=== PATIENT | female | born 1950 | race Caucasian/White ===

== ENCOUNTER → 2017-09-06 | Outpatient (CLI) | payer MEDICARE ==
[~2017-09-06] MED LIST: AMOCLA875 PO; ASPI325; BISA5EC PO; CELE200 PO; CEPH500 PO; CETI10 PO; CRUTCH USE; Cyclobenzaprine5 MG PO; DIPH50 PO; ENOX80I SQ; EPIN.3I IM; ESTMET; FAMO20 PO; FENTANYL PAIN PUMP; FOLI1 PO; GABA300 PO; GLUCHON; HYDACE5 PO; HYDACE7.5; HYDSUL200; HYDSUL200 PO; LEVSOD50 PO; LIDO700A20 TOP; LORA1; LORA2 PO; LOSA50 PO; METCAR500 PO; METO25 PO; METO25ER; METO50ER; METPRE4DP PO; METTREX2.5 PO; MORP15ER; MORPHINE 10 MG; MULVITA PO; OXYACE5T PO; OXYC30; OXYC5 PO; PHAZYME250 MG; POLY17UD PO; PRED20 PO; Percocet 5-3251 EACH PO; RANI150 PO; ROFE25; RXHYDACE PO; RXONDA4ODT MM; SULI200 PO; TIZA4 PO; WARF2.5 PO; Zanaflex4 M1 PO; [UNRECOGNIZED DRUG - OTHER]; [UNRECOGNIZED DRUG - REMARK]
== END ==
LOC: LAB 12:22
DX: N39.0 Urinary tract infection, site not specified (principal)
CPT/HCPCS: 87077; 87086; 87186

== ENCOUNTER → 2017-12-17 | Outpatient (CLI) | payer MEDICARE ==
[~2017-12-17] MED LIST changes: -LIDO700A20 TOP
== END | disposition home or self-care (01) ==
LOC: LAB 15:59 → LAB SHORT 15:59
DX: N39.0 Urinary tract infection, site not specified (principal)
CPT/HCPCS: 87077; 87086; 87186

== ENCOUNTER → 2018-02-20 | Outpatient (CLI) | payer MEDICARE ==
[2018-02-20 18:26] LABS: Free Thyroxine 1.15 ng/dL (0.70-1.60); Thyroid Stimulating Hormone 3.52 uIU/mL (0.360-4.800)
== END ==
LOC: LAB 17:29 → LAB SHORT 17:29
PROVIDERS: Hospitalist
DX: E03.9 Hypothyroidism, unspecified (principal)
CPT/HCPCS: 84439; 84443

== ENCOUNTER → 2018-06-20 | Outpatient (CLI) | payer MEDICARE ==
[~2018-06-20] MED LIST changes: +LIDO700A20 TOP
== END | disposition home or self-care (01) ==
LOC: LAB 10:28 → LAB SHORT 10:28
DX: N39.0 Urinary tract infection, site not specified (principal)
CPT/HCPCS: 87077; 87086; 87186

== ENCOUNTER → 2019-08-20 | Outpatient (CLI) | payer MEDICARE ==
[2019-08-20 19:54] LABS: Bun/Creatinine Ratio 23.8 (12.0-20.0); Calcium, Blood 9.3 mg/dL (8.5-10.1); Creatinine, Blood 1.26 mg/dL (0.40-1.00); Potassium, Blood 4.7 mmol/L (3.5-5.5)
== END | disposition home or self-care (01) ==
LOC: LAB 18:14 → LAB SHORT 18:14
PROVIDERS: Hospitalist
DX: N17.9 Acute kidney failure, unspecified (principal)
CPT/HCPCS: 80048

== ENCOUNTER 2020-10-01 12:57 | Emergency (ER) | payer MEDICARE ==
[~2020-10-01] VITALS: Ht 162.6 cm; Wt 65.8 kg
[2020-10-01 13:43] LABS: BASOPHILS ABSOLUTE AUTO 0.03 K/mm3 (0.00-0.23); BASOPHILS PERCENT AUTO 1 % (0-2); EOSINOPHILS ABSOLUTE AUTO 0.15 K/mm3 (0.00-0.68); EOSINOPHILS PERCENT AUTO 4 % (0-6); Hematocrit 36.2 % (33.0-51.0); Hemoglobin 12.1 g/dL (11.5-16.0); IMMATURE GRAN ABSOLUTE AUTO 0.01 K/mm3 (0.00-0.10); IMMATURE GRAN PERCENT AUTO 0 % (0-1); LYMPHOCYTES PERCENT AUTO 26 % (21-46); MONOCYTES ABSOLUTE AUTO 0.43 K/mm3 (0.16-1.47); MONOCYTES PERCENT AUTO 10 % (4-13); Mean Corpuscular HGB 32.7 pg (26.0-34.0); Mean Corpuscular HGB Conc 33.4 g/dL (31.5-36.5); Mean Corpuscular Volume 98 fL (80-100); Mean Platelet Volume 12.7 fL (9.1-12.4); NEUTROPHILS ABSOLUTE AUTO 2.53 K/mm3 (1.96-9.15); NEUTROPHILS PERCENT AUTO 60 % (41-73); Platelet Count 164 K/mm3 (150-400); RDW Coefficient Variation 11.6 % (11.7-14.2); RDW Standard Deviation 41.7 fL (35.1-46.3); White Blood Cell Count 4.25 K/mm3 (4.00-11.30)
[2020-10-01 14:03] LABS: Alanine Aminotransfer (ALT/SGP 30 U/L (12-78); Albumin, Blood 3.6 g/dL (3.4-5.0); Alk Phos 94 U/L (50-136); Anion Gap 4 mmol/L (6-16); Aspartate Aminotrans (AST/SGOT 36 U/L (12-37); Bilirubin, Total 0.4 mg/dL (0.1-1.0); Blood Urea Nitrogen 30 mg/dL (8-24); Bun/Creatinine Ratio 27.5 (12.0-20.0); CO2, Blood 28 mmol/L (21-32); Calcium, Blood 9.3 mg/dL (8.5-10.1); Chloride, Blood 109 mmol/L (98-108); Creatinine, Blood 1.09 mg/dL (0.40-1.00); Globulin, Blood 3.6 g/dL (2.2-4.0); Glomerular Filtration Rate 52 (60-); Glucose, Blood 110 mg/dL (70-99); Potassium, Blood 5.4 mmol/L (3.5-5.5); Sodium, Blood 141 mmol/L (136-145); Total Protein, Blood 7.2 g/dL (6.4-8.2); Troponin I <0.015 ng/mL (0.000-0.040)
[2020-10-01] MEDS ORDERED: XARELTO20 MG PO (17:31)
== END 2020-10-01 18:21 | disposition home or self-care (01) ==
LOC: ER 12:57
PROVIDERS: Physician Assistant
DX: I26.99 Other pulmonary embolism without acute cor pulmonale (principal); Z79.899 Other long term (current) drug therapy; Z91.030 Bee allergy status
CPT/HCPCS: 36415; 71046; 71260; 80053; 83880; 84484; 85025; 93005; 93010; 99285-25; Q9967

== ENCOUNTER 2020-11-18 13:10 | Emergency (ER) | payer MEDICARE ==
[~2020-11-18] VITALS: Ht 160 cm; Wt 63.5 kg
[~2020-11-18 13:10] MED LIST changes: +DELTASONE20 MG PO; +XARELTO20 MG PO
== END 2020-11-18 16:15 | disposition home or self-care (01) ==
LOC: ER 13:10
DX: M71.21 Synovial cyst of popliteal space [Baker], right knee (principal); I10 Essential (primary) hypertension; E03.9 Hypothyroidism, unspecified; Z79.899 Other long term (current) drug therapy; Z91.030 Bee allergy status
CPT/HCPCS: 93971; 99283-25

== ENCOUNTER → 2020-12-22 | Outpatient (CLI) | payer MEDICARE ==
[2020-12-22 20:07] LABS: Free Thyroxine 1.3 ng/dL (0.70-1.60); Thyroid Stimulating Hormone 2.92 uIU/mL (0.360-4.800)
== END | disposition home or self-care (01) ==
LOC: LAB 17:30 → LAB SHORT 17:30
PROVIDERS: Hospitalist
DX: E03.9 Hypothyroidism, unspecified (principal)
CPT/HCPCS: 84439; 84443

== ENCOUNTER → 2021-04-12 | Outpatient (CLI) | payer MEDICARE | LOC: LAB SHORT 14:22 | DX: R30.0 Dysuria (principal); Z91.038 Other insect allergy status | CPT/HCPCS: 87086 ==

== ENCOUNTER 2021-07-20 15:49 | Emergency (ER) | payer MEDICARE ==
[~2021-07-20] VITALS: Ht 160 cm; Wt 63.5 kg
== END 2021-07-20 18:37 | disposition home or self-care (01) ==
LOC: ER 15:49
DX: U07.1 COVID-19 (principal); Z23 Encounter for immunization; Z91.030 Bee allergy status; Z79.899 Other long term (current) drug therapy; Z79.891 Long term (current) use of opiate analgesic; Z79.52 Long term (current) use of systemic steroids; M06.9 Rheumatoid arthritis, unspecified; E03.9 Hypothyroidism, unspecified; I10 Essential (primary) hypertension
CPT/HCPCS: 99283-25; M0247

== ENCOUNTER → 2021-07-20 | Outpatient (CLI) | payer MEDICARE ==
[2021-07-20 16:06] LABS: BASOPHILS ABSOLUTE AUTO 0.02 K/mm3 (0.00-0.23); BASOPHILS PERCENT AUTO 0 % (0-2); EOSINOPHILS ABSOLUTE AUTO 0.07 K/mm3 (0.00-0.68); EOSINOPHILS PERCENT AUTO 1 % (0-6); Hematocrit 36.8 % (33.0-51.0); Hemoglobin 12.2 g/dL (11.5-16.0); IMMATURE GRAN ABSOLUTE AUTO 0.01 K/mm3 (0.00-0.10); IMMATURE GRAN PERCENT AUTO 0 % (0-1); LYMPHOCYTES ABSOLUTE AUTO 0.41 K/mm3 (0.84-5.20); LYMPHOCYTES PERCENT AUTO 8 % (21-46); MONOCYTES ABSOLUTE AUTO 0.59 K/mm3 (0.16-1.47); MONOCYTES PERCENT AUTO 12 % (4-13); Mean Corpuscular HGB 32.4 pg (26.0-34.0); Mean Corpuscular HGB Conc 33.2 g/dL (31.5-36.5); Mean Corpuscular Volume 98 fL (80-100); Mean Platelet Volume 12.9 fL (9.1-12.4); NEUTROPHILS PERCENT AUTO 78 % (41-73); Platelet Count 122 K/mm3 (150-400); RDW Coefficient Variation 12.2 % (11.7-14.2); RDW Standard Deviation 44.1 fL (35.1-46.3); Red Blood Cell Count 3.76 M/mm3 (3.80-5.20)
== END ==
LOC: LAB SHORT 15:23
PROVIDERS: Physician Assistant
DX: R53.83 Other fatigue (principal); R07.9 Chest pain, unspecified
CPT/HCPCS: 85025; 85379

== ENCOUNTER 2021-08-28 19:36 | Emergency (ER) | payer MEDICARE ==
[~2021-08-28] VITALS: Ht 160 cm; Wt 64.9 kg
[2021-08-28 20:08] LABS: BASOPHILS ABSOLUTE AUTO 0.03 K/mm3 (0.00-0.23); BASOPHILS PERCENT AUTO 1 % (0-2); EOSINOPHILS ABSOLUTE AUTO 0.16 K/mm3 (0.00-0.68); EOSINOPHILS PERCENT AUTO 3 % (0-6); Hematocrit 35.1 % (33.0-51.0); Hemoglobin 11.3 g/dL (11.5-16.0); IMMATURE GRAN ABSOLUTE AUTO 0.01 K/mm3 (0.00-0.10); IMMATURE GRAN PERCENT AUTO 0 % (0-1); LYMPHOCYTES ABSOLUTE AUTO 1.74 K/mm3 (0.84-5.20); LYMPHOCYTES PERCENT AUTO 32 % (21-46); MONOCYTES ABSOLUTE AUTO 0.71 K/mm3 (0.16-1.47); MONOCYTES PERCENT AUTO 13 % (4-13); Mean Corpuscular HGB 32.8 pg (26.0-34.0); Mean Corpuscular HGB Conc 32.2 g/dL (31.5-36.5); Mean Corpuscular Volume 102 fL (80-100); Mean Platelet Volume 12.1 fL (9.1-12.4); NEUTROPHILS ABSOLUTE AUTO 2.77 K/mm3 (1.96-9.15); NEUTROPHILS PERCENT AUTO 51 % (41-73); Platelet Count 156 K/mm3 (150-400); RDW Coefficient Variation 12.3 % (11.7-14.2); RDW Standard Deviation 46.5 fL (35.1-46.3); Red Blood Cell Count 3.45 M/mm3 (3.80-5.20); White Blood Cell Count 5.42 K/mm3 (4.00-11.30)
[2021-08-28 20:21] LABS: Albumin, Blood 3.4 g/dL (3.4-5.0); Albumin/Globulin Ratio 1.1 (0.8-1.8); Bilirubin, Total 0.2 mg/dL (0.1-1.0); Bun/Creatinine Ratio 19.7 (12.0-20.0); Calcium, Blood 9.5 mg/dL (8.5-10.1); Creatinine, Blood 1.57 mg/dL (0.40-1.00); Globulin, Blood 3.2 g/dL (2.2-4.0); Potassium, Blood 3.6 mmol/L (3.5-5.5); Total Protein, Blood 6.6 g/dL (6.4-8.2)
== END 2021-08-29 00:22 | disposition home or self-care (01) ==
LOC: ER 19:36
PROVIDERS: Emergency Medicine
DX: I95.9 Hypotension, unspecified (principal); R55 Syncope and collapse; E86.0 Dehydration; I12.9 Hypertensive chronic kidney disease with stage 1 through stage 4 chronic kidney disease, or unspecified chronic kidney disease; N18.9 Chronic kidney disease, unspecified; E03.9 Hypothyroidism, unspecified; Z86.718 Personal history of other venous thrombosis and embolism; Z91.030 Bee allergy status; Z79.899 Other long term (current) drug therapy
CPT/HCPCS: 80053; 83880; 84484; 85025; 85379; 93005; 93010; 99284-25; J7030

== ENCOUNTER → 2021-10-31 | Outpatient (CLI) | payer MEDICARE ==
[2021-10-31 15:25] LABS: Free Thyroxine 1.25 ng/dL (0.70-1.60)
[2021-10-31 15:31] LABS: Thyroid Stimulating Hormone 1.13 uIU/mL (0.360-4.800); Triiodothyronine, Free 2.69 pg/mL (2.18-3.98)
== END | disposition home or self-care (01) ==
LOC: LAB 11:45 → LAB SHORT 11:45
PROVIDERS: Hospitalist
DX: E03.9 Hypothyroidism, unspecified (principal)
CPT/HCPCS: 84439; 84443; 84481

== ENCOUNTER 2022-03-31 20:33 | Emergency (ER) | payer MEDICARE ==
[~2022-03-31] VITALS: Ht 160 cm; Wt 63.5 kg
[2022-03-31 21:12] LABS: BASOPHILS ABSOLUTE AUTO 0.04 K/mm3 (0.00-0.23); BASOPHILS PERCENT AUTO 1 % (0-2); EOSINOPHILS ABSOLUTE AUTO 0.15 K/mm3 (0.00-0.68); EOSINOPHILS PERCENT AUTO 3 % (0-6); Hematocrit 34.4 % (33.0-51.0); Hemoglobin 11.6 g/dL (11.5-16.0); IMMATURE GRAN PERCENT AUTO 0 % (0-1); LYMPHOCYTES ABSOLUTE AUTO 2.21 K/mm3 (0.84-5.20); LYMPHOCYTES PERCENT AUTO 41 % (21-46); MONOCYTES ABSOLUTE AUTO 0.57 K/mm3 (0.16-1.47); MONOCYTES PERCENT AUTO 11 % (4-13); Mean Corpuscular HGB Conc 33.7 g/dL (31.5-36.5); Mean Corpuscular Volume 98 fL (80-100); Mean Platelet Volume 12.3 fL (9.1-12.4); NEUTROPHILS ABSOLUTE AUTO 2.44 K/mm3 (1.96-9.15); NEUTROPHILS PERCENT AUTO 45 % (41-73); Platelet Count 179 K/mm3 (150-400); RDW Coefficient Variation 12.4 % (11.7-14.2); RDW Standard Deviation 44.2 fL (35.1-46.3); Red Blood Cell Count 3.52 M/mm3 (3.80-5.20); White Blood Cell Count 5.41 K/mm3 (4.00-11.30)
[2022-03-31 21:30] LABS: Albumin, Blood 3.4 g/dL (3.4-5.0); Albumin/Globulin Ratio 1.1 (0.8-1.8); Bilirubin, Total 0.2 mg/dL (0.1-1.0); Bun/Creatinine Ratio 20.6 (12.0-20.0); Calcium, Blood 9.5 mg/dL (8.5-10.1); Creatinine, Blood 1.41 mg/dL (0.40-1.00); Globulin, Blood 3.2 g/dL (2.2-4.0); Phosphorus, Blood 2.1 mg/dL (2.5-4.9); Potassium, Blood 3.8 mmol/L (3.5-5.5); Total Protein, Blood 6.6 g/dL (6.4-8.2)
[2022-03-31 23:11] LABS: Source, Urine Clean Catch
[2022-03-31 23:13] LABS: Bilirubin, Urine Neg (Neg); Blood, Urine Neg (Neg); Glucose Qualitative, Urine Neg (Neg); Ketones, Urine 1+ (Neg); Leukocyte Esterase, Urine 1+ (Neg); Nitrite, Urine Neg (Neg); Protein, Urine Neg (Neg); Specific Gravity, Urine 1.015 (1.003-1.022); Urobilinogen, Urine NORM (Normal)
[2022-03-31 23:30] LABS: Appearance, Urine Clear (Clear); Color, Urine Yellow (P-Yellow)
[2022-03-31 23:33] LABS: Bacteria Not Seen /hpf; Red Blood Cells, Urine Not Seen /hpf (0-2); Squamous Epithelial Cells Not Seen /hpf (Few); White Blood Cells, Urine 0-2 /hpf (0-5)
== END 2022-04-01 00:26 | disposition home or self-care (01) ==
LOC: ER 20:33
PROVIDERS: Physician Assistant
DX: R55 Syncope and collapse (principal); I95.9 Hypotension, unspecified; E03.9 Hypothyroidism, unspecified; I10 Essential (primary) hypertension; Z87.891 Personal history of nicotine dependence; Z91.030 Bee allergy status; Z79.899 Other long term (current) drug therapy
CPT/HCPCS: 36415; 71045; 80053; 81001; 83735; 84100; 84484; 85025; 93005; 93010; 96360; 96361; 99284-25; J7030

== ENCOUNTER → 2022-04-12 | Outpatient (CLI) | payer MEDICARE | END | disposition home or self-care (01) | LOC: LAB 15:00 → LAB SHORT 15:00 | DX: N30.00 Acute cystitis without hematuria (principal) | CPT/HCPCS: 87077; 87086; 87186 ==

== ENCOUNTER → 2022-06-27 | Outpatient (CLI) | payer MEDICARE ==
[~2022-06-27] MED LIST changes: +AMITIZA PO; +AMLO5 PO; +ASCO500 PO; +CALC.25 PO; +ENBREL25 MG SC; +FURO40 PO; +Folbee Plus Tabl5 MG PO; +HYDMOR8 PO; +PHAZYME250 MG PO; +VITAMIN D310 MC4 PO; -Zanaflex4 M1 PO
[2022-06-27 17:25] LABS: Protein, Urine Quantitative 6.5 mg/dL (0.0-11.9)
[2022-06-27 17:29] LABS: Microalbumin, Urine Quant. <5.000 mg/L (0.000-20.000)
== END | disposition home or self-care (01) ==
LOC: LAB SHORT 08:00 → LAB 08:00
PROVIDERS: Internal Medicine Nephrology
DX: N18.30 Chronic kidney disease, stage 3 unspecified (principal); D63.1 Anemia in chronic kidney disease; N25.81 Secondary hyperparathyroidism of renal origin; E55.9 Vitamin D deficiency, unspecified; E78.00 Pure hypercholesterolemia, unspecified; R76.9 Abnormal immunological finding in serum, unspecified; R94.6 Abnormal results of thyroid function studies; R94.5 Abnormal results of liver function studies
CPT/HCPCS: 81050; 82043; 82570; 84156

== ENCOUNTER 2022-07-02 06:04 | Day surgery (SDC) | payer MEDICARE ==
[~2022-07-02] VITALS: Ht 160 cm; Wt 68.7 kg
--- NOTE | 2022-07-02 14:39 | NUR ---
07/02/22 1439 Sarai Kaufman 1400: PATIENT DID RECEIVE ABOUT 300 MLS OF LR FLUID WHILE IN PRE-OP TO KEEP VEIN OPEN WHILE WAITING FOR SURGERY SURGERY WAS DELAYED. IV HAD TO BE RESTARTED AT A NEW SITE D/T INFILTRATION. 1407: TYLENOL PO GIVEN PER ORDERS 1412: OXYCODONE 30 MG PO GIVEN PER ORDERS.
--- NOTE | 2022-07-02 15:40 | NUR ---
07/02/22 1540 Chasity Murrell INTERSCALENE BLOCKED PLACED BEFORE PT ENTERED OR WITHOUT DIFFICULTY BY DR. MONTOYA. 0.15ML OF EPI 1MG/ML ADDED TO 30ML ROPIVICAINE 0.5% TO CREATE A LOCAL SOLUTION OF ROPIVICAINE 0.5% WITH EPI 1:200,000. 2 GLENOID TARGETER PINS, 2.8MM, LOT # [id number] 09/14/2024; LOT#[id number] 11/14/2024.
--- NOTE | 2022-07-02 17:51 | NUR ---
07/02/22 1751 LULU SIFUENTES IN TO PERFORM SHOULDER XRAY. 2ND DOSE TXA STARTED 3 HOURS POST FIRST INFUSION. 2ND DOSE START TIME OF 1754.
== END 2022-07-02 18:21 | disposition home or self-care (01) ==
LOC: ORSCSDS 06:04
PROVIDERS: Orthopaedic Surgery
PROC: 0RRK00Z Replacement of Left Shoulder Joint with Reverse Ball and Socket Synthetic Substitute, Open Approach (ICD-10-PCS; principal; 2022-07-02 07:30)
DX: M19.012 Primary osteoarthritis, left shoulder (principal); M75.122 Complete rotator cuff tear or rupture of left shoulder, not specified as traumatic; E03.9 Hypothyroidism, unspecified; I12.9 Hypertensive chronic kidney disease with stage 1 through stage 4 chronic kidney disease, or unspecified chronic kidney disease; N18.30 Chronic kidney disease, stage 3 unspecified; Z87.891 Personal history of nicotine dependence; Z79.899 Other long term (current) drug therapy; Z79.01 Long term (current) use of anticoagulants
CPT/HCPCS: 73030; A9270; C1713; C1776; J0171; J0696; J1100; J1885; J2250; J2370; J2405; J2550; J2704; J2795; J3010; J3370; J7120

== ENCOUNTER 2023-01-23 19:55 | Emergency (ER) | payer MEDICARE | END 2023-01-24 00:26 | disposition home or self-care (01) | LOC: ER 19:55 | DX: U07.1 COVID-19 (principal); J12.82 Pneumonia due to coronavirus disease 2019; Z91.030 Bee allergy status; Z79.899 Other long term (current) drug therapy; Z79.891 Long term (current) use of opiate analgesic; M06.9 Rheumatoid arthritis, unspecified; E03.9 Hypothyroidism, unspecified; I10 Essential (primary) hypertension; Z87.891 Personal history of nicotine dependence ==

== ENCOUNTER 2023-01-30 12:14 | Emergency (ER) | payer MEDICARE ==
[~2023-01-30] VITALS: Ht 165.1 cm; Wt 63.5 kg
[~2023-01-30 12:14] MED LIST changes: +ALBU90OI INH; +Prednisone10 MG PO
[2023-01-30 12:32] VITALS: BP 194/80
[2023-01-30 13:54] LABS: BASOPHILS ABSOLUTE AUTO 0.01 K/mm3 (0.00-0.23); BASOPHILS PERCENT AUTO 0 % (0-2); EOSINOPHILS ABSOLUTE AUTO 0.09 K/mm3 (0.00-0.68); EOSINOPHILS PERCENT AUTO 2 % (0-6); Hematocrit 42.3 % (33.0-51.0); Hemoglobin 14.2 g/dL (11.5-16.0); IMMATURE GRAN ABSOLUTE AUTO 0.02 K/mm3 (0.00-0.10); IMMATURE GRAN PERCENT AUTO 0 % (0-1); LYMPHOCYTES ABSOLUTE AUTO 1.23 K/mm3 (0.84-5.20); LYMPHOCYTES PERCENT AUTO 22 % (21-46); MONOCYTES ABSOLUTE AUTO 0.61 K/mm3 (0.16-1.47); MONOCYTES PERCENT AUTO 11 % (4-13); Mean Corpuscular HGB 32.8 pg (26.0-34.0); Mean Corpuscular HGB Conc 33.6 g/dL (31.5-36.5); Mean Corpuscular Volume 98 fL (80-100); Mean Platelet Volume 12.1 fL (9.1-12.4); NEUTROPHILS ABSOLUTE AUTO 3.73 K/mm3 (1.96-9.15); NEUTROPHILS PERCENT AUTO 66 % (41-73); Platelet Count 179 K/mm3 (150-400); RDW Coefficient Variation 11.9 % (11.7-14.2); RDW Standard Deviation 42.9 fL (35.1-46.3); Red Blood Cell Count 4.33 M/mm3 (3.80-5.20); White Blood Cell Count 5.69 K/mm3 (4.00-11.30)
[2023-01-30 14:08] LABS: International Normalized Ratio 1.22; Prothrombin Time Results 12.7 Sec (9.7-11.5)
[2023-01-30 14:20] LABS: Albumin, Blood 3.4 g/dL (3.4-5.0); Albumin/Globulin Ratio 0.9 (0.8-1.8); Bilirubin, Total 0.3 mg/dL (0.1-1.0); Bun/Creatinine Ratio 18.6 (12.0-20.0); Calcium, Blood 9.9 mg/dL (8.5-10.1); Creatinine, Blood 1.18 mg/dL (0.40-1.00); Globulin, Blood 3.7 g/dL (2.2-4.0); Magnesium, Blood 2.5 mg/dL (1.6-2.4); Phosphorus, Blood 3.8 mg/dL (2.5-4.9); Potassium, Blood 4.8 mmol/L (3.5-5.5); Thyroid Stimulating Hormone 4.3 uIU/mL (0.360-4.800); Total Protein, Blood 7.1 g/dL (6.4-8.2)
[2023-01-30] MEDS ORDERED: ACET500 PO (14:53)
== END 2023-01-30 15:46 | disposition home or self-care (01) ==
LOC: ER 12:14
PROVIDERS: Emergency Medicine
DX: R51.9 Headache, unspecified (principal); Z91.030 Bee allergy status; Z79.899 Other long term (current) drug therapy; Z79.891 Long term (current) use of opiate analgesic; Z79.52 Long term (current) use of systemic steroids; M06.9 Rheumatoid arthritis, unspecified; E03.9 Hypothyroidism, unspecified; I10 Essential (primary) hypertension; Z87.891 Personal history of nicotine dependence
CPT/HCPCS: 70450; 70496; 71046; 80053; 83735; 84100; 84443; 84484; 85025; 85610; 85730; 93005; 93010; 99284-25; A9270; Q9967

== ENCOUNTER → 2023-06-13 | Outpatient (CLI) | payer MEDICARE ==
[~2023-06-13] MED LIST changes: +ACET500 PO
[2023-06-13 13:29] LABS: BASOPHILS ABSOLUTE AUTO 0.03 K/mm3 (0.00-0.23); BASOPHILS PERCENT AUTO 1 % (0-2); EOSINOPHILS ABSOLUTE AUTO 0.13 K/mm3 (0.00-0.68); EOSINOPHILS PERCENT AUTO 3 % (0-6); Hematocrit 36.7 % (33.0-51.0); Hemoglobin 12.2 g/dL (11.5-16.0); IMMATURE GRAN ABSOLUTE AUTO 0.01 K/mm3 (0.00-0.10); IMMATURE GRAN PERCENT AUTO 0 % (0-1); LYMPHOCYTES ABSOLUTE AUTO 1.08 K/mm3 (0.84-5.20); LYMPHOCYTES PERCENT AUTO 22 % (21-46); MONOCYTES ABSOLUTE AUTO 0.48 K/mm3 (0.16-1.47); MONOCYTES PERCENT AUTO 10 % (4-13); Mean Corpuscular HGB 32.4 pg (26.0-34.0); Mean Corpuscular HGB Conc 33.2 g/dL (31.5-36.5); Mean Corpuscular Volume 98 fL (80-100); NEUTROPHILS ABSOLUTE AUTO 3.25 K/mm3 (1.96-9.15); NEUTROPHILS PERCENT AUTO 65 % (41-73); Platelet Count 171 K/mm3 (150-400); RDW Coefficient Variation 12.6 % (11.7-14.2); RDW Standard Deviation 45.2 fL (35.1-46.3); Red Blood Cell Count 3.76 M/mm3 (3.80-5.20); White Blood Cell Count 4.98 K/mm3 (4.00-11.30)
[2023-06-13 14:17] LABS: Uric Acid, Blood 6.3 mg/dL (2.6-6.0)
[2023-06-13 14:18] LABS: C-REACTIVE PROTEIN, EXT RANGE 0.764 mg/dL (0.000-0.300)
== END ==
LOC: LAB SHORT 12:25 → LAB 12:25
PROVIDERS: Hospitalist
DX: M79.645 Pain in left finger(s) (principal)
CPT/HCPCS: 84550; 85025; 86140

== ENCOUNTER 2023-08-07 08:34 | Day surgery (SDC) | payer OTHER ==
[2023-08-07] VITALS (21 sets, daily range): BP systolic 92–181; BP diastolic 47–115
[~2023-08-07] VITALS: Ht 160 cm; Wt 66.0 kg
[~2023-08-07 08:34] MED LIST changes: +ALLO100 PO; +COLCHICINE0.6 MG PO; +MIRT30 PO; +OXYCODONE PO; +POTA10T PO; +Prednisone10 MG; +TOPROL XL50 MG PO
[2023-08-07] MEDS ORDERED: FentaNYL Citrate 50 MCG/ML 2 ML Injection ONE (08:39)
[2023-08-07] MEDS ORDERED: propofoL 40 ML IV ONE (08:39)
[2023-08-07] MEDS ORDERED: Midazolam HCl 1MG / ML 2ML Vial ONE (08:39)
[2023-08-07] MEDS ORDERED: Lactated Ringer's 1,000 ML IV SCH ×2 (09:15→10:25)
[2023-08-07] MEDS ORDERED: TRANEXAMIC ACID IV SCH (09:15)
[2023-08-07] MEDS ORDERED: Ropivacaine 0.5% HCl/Pf 67.75 MG,EPINEPHrine HCL 0.25 MG,Ketorolac Tromethamine 15 MG,C... INFIL SCH (09:15)
[2023-08-07] MEDS ORDERED: NS IV SCH (09:15)
[2023-08-07] MEDS ORDERED: Chlorhexidine Mouth Care 15 ML UDC MT SCH (09:15)
[2023-08-07] MEDS ORDERED: CeFAZolin Sodium 2,000 MG in NS 50 ML IV SCH ×2 (09:15→18:45)
[2023-08-07] MEDS ORDERED: HYDMOR4 PO (09:21)
[2023-08-07] MEDS ORDERED: Acetaminophen 500 MG Tab PO SCH ×2 (10:05→16:00)
[2023-08-07] MEDS ORDERED: OxyCODONE HCL 10 MG TABCR PO SCH (10:05)
[2023-08-07] MEDS ORDERED: Vancomycin HCL 1,000 MG in NS 100 ML IV SCH ×2 (10:05→22:00)
[2023-08-07] MEDS ORDERED: Morphine Sulfate 4 MG/1 ML Injection IV PRN (10:20)
[2023-08-07] MEDS ORDERED: Labetalol HCL 5 MG/ML 4ML Injection (Single Dose) IV PRN (10:20)
[2023-08-07] MEDS ORDERED: FentaNYL Citrate 50 MCG/ML 2 ML Injection IV PRN ×2 (10:20)
[2023-08-07] MEDS ORDERED: Metoclopramide HCl 5MG / ML 2ML Vial IV PRN ×2 (10:20→10:25)
[2023-08-07] MEDS ORDERED: Magnesium Hydroxide Conc 10 ML UDC PO PRN (10:25)
[2023-08-07] MEDS ORDERED: Promethazine HCl 25 MG Tab PO PRN (10:25)
[2023-08-07] MEDS ORDERED: Bisacodyl 10 MG Supp PR PRN (10:25)
[2023-08-07] MEDS ORDERED: Ondansetron HCl 2 MG / ML 2ML Vial IV PRN (10:25)
--- NOTE | 2023-08-07 10:28 | NUR ---
PT IN SDS. Patient up to Ambulate independently. Gait steady. Surgical site prepped with 2% Chlorhexidine cloth wipe. History, Chart, Medications and Allergies reviewed before start of procedure. Pre-Op teaching done. Pt verbalizes understanding. Patient confirms NPO status and agrees with scheduled surgery. Pt belongings sent to OR with patient under wong.
[2023-08-07] MEDS ORDERED: HYDROmorphone HCl/Pf 1MG SYR IV PRN (10:30)
[2023-08-07] MEDS ORDERED: FLU VACC QS2023-24(6MOS UP)/PF 60 MCG/0.5 ML SYRINGE IM SCH (10:30)
[2023-08-07] MEDS ORDERED: HYDROmorphone HCl 2 MG Tab PO PRN (10:30)
[2023-08-07] MEDS ORDERED: DiphenhydrAMINE HCL 25 MG Cap PO PRN (10:30)
[2023-08-07] MEDS ORDERED: Bupivacaine 0.5% HCl 5 MG/ML 30MLVIAL ONE (10:34)
[2023-08-07] MEDS ORDERED: EpiNEPhrine 1 MG/1 ML 1ML Vial IM PRN (10:35)
[2023-08-07] MEDS ORDERED: Potassium Chloride 10 Meq Tablet SA PO PRN (10:35)
[2023-08-07] MEDS ORDERED: Furosemide 40 MG Tab PO PRN (10:40)
[2023-08-07] MEDS ORDERED: Lidocaine HCl 2% 20 ML MDV ONE (10:52)
[2023-08-07] MEDS ORDERED: Ondansetron HCl 2 MG / ML 2ML Vial ONE (10:57)
[2023-08-07] MEDS ORDERED: Dexamethasone Sod Phos 10 MG/ML 1ML VIAL ONE (10:57)
[2023-08-07] MEDS ORDERED: FentaNYL Citrate 50 MCG/ML 5 ML Injection ONE (11:27)
[2023-08-07] MEDS ORDERED: Morphine Sulfate 4 MG/1 ML Injection ONE ×2 (13:20→13:43)
[2023-08-07] MEDS ORDERED: Simethicone 80 MG Chew PO PRN (13:30)
[2023-08-07] MEDS ORDERED: Ketorolac Tromethamine 30mg Vial ONE (13:54)
[2023-08-07] MEDS ORDERED: Gabapentin 300 MG Cap PO SCH (14:00)
--- NOTE | 2023-08-07 14:29 | NUR ---
PATIENT ARRIVED FROM PACU TODAY. POD 0 RIGHT TOTAL KNEE PATIENT IS DROWSY AND TEARFUL WHEN SHE ARRIVED TO HER ROOM BUT ANSWERS QUESTIONS APPROPRIATELY. PATIENT REPORTS A 8/10 PAIN AT THIS TIME. HER RIGHT KNEE HAS AN AQUACEL THAT IS C/D/I WITH POLAR PACK IN PLACE. SHE IS TOLERATING SMALL AMOUNTS OF PO INTAKE. SHE IS ABLE TO MOVE ALL FINGERS AND TOES WHEN ASKED. DENIES NUMBNESS OR TINGLING THROUGHOUT ALL EXTREMITIES. PATIENT IS CURRENTLY LAYING IN BED WITH CALL LIGHT IN REACH AND AT BEDSIDE.
[2023-08-07] MEDS ORDERED: Ketorolac Tromethamine 15mg Vial IV SCH (18:00)
--- NOTE | 2023-08-07 18:26 | NUR ---
SHIFT SUMMARY: POD 0 RIGHT TOTAL KNEE PATIENT IS A&OX4. PAIN IS MANAGED WITH PO DILAUDID AND IV DILAUDID. PATIENT ALSO HAS A FENTANYL PAIN PUMP IN HER ABD THAT WAS PLACED IN 2008 DUE TO HX OF CHRONIC BACK PAIN. HER RIGHT KNEE HAS AN AQUACEL WITH POLAR PACK IN PLACE AND IS C/D/I. PATIENT DENIES NUMBNESS OR TINGLING THROUGHOUT AND IS ABLE TO WIGGLE ALL FINGERS AND TOES WHEN ASKED. PATIENT IS TOLERATING PO INTAKE AND IS VOIDING. SHE IS A SBA WITH FWW AND GAIT BELT. PATIENT DID WORK WITH PHYSICAL THERAPY ONCE TODAY. SHE IS CURRENTLY IN HER RECLINER CHAIR WITH CALL LIGHT IN REACH. PATIENT CALLS APPROPRIATELY.
[2023-08-07] MEDS ORDERED: TiZANidine HCl 4 MG Tab PO SCH (21:00)
[2023-08-07] MEDS ORDERED: Metoprolol Succinate 50 MG TABCR PO SCH (21:00)
[2023-08-07] MEDS ORDERED: Mirtazapine 30 MG Tab PO SCH (21:00)
[2023-08-07] MEDS ORDERED: Docusate Sodium 100 MG Cap PO SCH (21:00)
[2023-08-08] VITALS (7 sets, daily range): BP systolic 84–125; BP diastolic 43–58
--- NOTE | 2023-08-08 01:29 | NUR ---
HYPOTENSION PT IS HYPOTENSIVE. SHE REPORTS A HISTORY OF BEING HYPOTENSIVE WITH PREVIOUS HOSPITALIZATIONS. PT REPORTS FEELING WEAK ALSO. PT IS A/OX4, SPEECH IS CLEAR. DR. HOLDER SURGEON ON CALLED NOTIFIED. RECEIVED ORDER FOR A HOSPITALIZT CONSULT FOR MEDICAL MANAGEMENT. CBC NOW AND EKG.
[2023-08-08 02:07] LABS: Bun/Creatinine Ratio 31.8 (12.0-20.0); Calcium, Blood 8.5 mg/dL (8.5-10.1); Creatinine, Blood 1.29 mg/dL (0.40-1.00); Magnesium, Blood 1.8 mg/dL (1.6-2.4); Potassium, Blood 4.8 mmol/L (3.5-5.5)
--- NOTE | 2023-08-08 02:17 | NUR ---
HOSPITALIST CONSULT/HYPOTENSION PT REMAINS HYPOTENSIVE, BUT REPORTS THAT SHE IS FEELING LESS WEAK AND FEELS THAT HER ENERGY IS RETURNING. CALL PLACED TO DR. RIVERA FOR HOSPITALIST CONSULT. DR. RIVERA TO REVIEW PT CHART, ROUND ON PT, AND PLACE ORDERS. EKG AND LABS DONE. EKG WNL.
[2023-08-08 02:35] LABS: BASOPHILS ABSOLUTE AUTO 0.01 K/mm3 (0.00-0.23); BASOPHILS PERCENT AUTO 0 % (0-2); EOSINOPHILS PERCENT AUTO 0 % (0-6); Hematocrit 29.6 % (33.0-51.0); Hemoglobin 9.7 g/dL (11.5-16.0); IMMATURE GRAN ABSOLUTE AUTO 0.01 K/mm3 (0.00-0.10); IMMATURE GRAN PERCENT AUTO 0 % (0-1); LYMPHOCYTES ABSOLUTE AUTO 0.62 K/mm3 (0.84-5.20); LYMPHOCYTES PERCENT AUTO 12 % (21-46); MONOCYTES ABSOLUTE AUTO 0.57 K/mm3 (0.16-1.47); MONOCYTES PERCENT AUTO 11 % (4-13); Mean Corpuscular HGB 32.6 pg (26.0-34.0); Mean Corpuscular HGB Conc 32.8 g/dL (31.5-36.5); Mean Corpuscular Volume 99 fL (80-100); Mean Platelet Volume 12.6 fL (9.1-12.4); NEUTROPHILS ABSOLUTE AUTO 4.12 K/mm3 (1.96-9.15); NEUTROPHILS PERCENT AUTO 77 % (41-73); Platelet Count 131 K/mm3 (150-400); RDW Coefficient Variation 13.9 % (11.7-14.2); RDW Standard Deviation 50.7 fL (35.1-46.3); Red Blood Cell Count 2.98 M/mm3 (3.80-5.20); White Blood Cell Count 5.33 K/mm3 (4.00-11.30)
[2023-08-08] MEDS ORDERED: Lactated Ringer's 500 ML IV ONE ×2 (03:00→05:05)
--- NOTE | 2023-08-08 05:00 | NUR ---
HYPOTENSION PT REMAINS HYPOTENSIVE DESPITE 500 CC BOLUS. PT STATES THAT SHE IS FEELING BETTER AFTER THE BOLUS. DR. RIVERA NOTIFIED THAT BLOOD PRESSURE DID NOT IMPROVE WITH BOLUS. HE ORDERED AN ADDITIONAL 500 CC BOLUS TO BE GIVEN NOW.
--- NOTE | 2023-08-08 05:36 | NUR ---
SHIFT SUMMARY PT POD 0 R TOTAL KNEE. PT HAS RESTED T/O THE SHIFT. PT HAS BEEN HYPOTENSIVE, AND PT REPORTS FEELING WEAK. SHE REPORTS A PMH OF HYPOTENSION AT HOME, AND ALSO WHILE IN THE HOSPITAL, AND STATES THAT SHE HAS A HX OF PASSING OUT BECUASE OF HE LOW BLOOD PRESSURES. PT TAKES METOPROLOL XL ROUTINELY. BP WAS STABLE AT THE BEGINNING OF THE SHIFT. HOWEVER, PT WAS FOUND TO BE HYPOTENSIVE WITH MIDNIGHT VITALS CHECK. SURGEON NOTIFIED, AND HOSPITALIST SERVICE CONSULTED FOR MEDICAL MANAGEMENT. HOSPITALIST ORDERED A 500 CC BOLUS, WHICH DID NOT IMPROVE BLOOD PRESSURE. SECOND 500 CC BOLUS ORDERED AT THIS TIME. IF BOLUS INEFFECTIVE FOR A SECOND TIME, DR. RIVERA TO ORDER MIDODRINE. PT VOIDED AT THE BEGINNING OF THE SHIFT AROUND 1900, BUT HAS NOT VOIDED ANYMORE SINCE THAT TIME. BLADDER SCAN REVEALED 279 IN BLADDER. PT A/OX4, BUT DROWSY MOST OF THE SHIFT. EASILY AWAKES TO VERBAL STIMULI AND MAKES CONVERSATION BUT QUICKLY FALLS BACK TO SLEEP. PT WAS VERY AWAKE AND TALKATIVE AT THE START OF THE SHIFT, AND WAS COMPLAINING OF PAIN 6/10 PAIN IN RIGHT KNEE. PT MEDICATED PER EMAR WITH EFFECT. PT HAS NOT AMBULATED OOB FOR SAFETY DUE TO HYPOTENSION. POLAR PACK, JACKIE WRAP IN PLACE. C/D/I. NO S/S OF BLEEDING. BED IN LOWEST POSITION, CALL LIGHT WITHIN REACH.
[2023-08-08] MEDS ORDERED: Levothyroxine Sodium 0.05 MG Tab PO SCH (06:00)
--- NOTE | 2023-08-08 06:48 | NUR ---
HYPOTENSION-UPDATE PT BLOOD PRESSURE IMPROVED AFTER SECOND 500 CC BOLUS. PT HAS VOIDED. AWAKE AND ALERT. PT DECLINED TO GET UP DRESSED AND IN THE CHAIR AT THIS TIME AND STATES SHE WANTS TO WAIT A FEW MINUTES,
[2023-08-08] MEDS ORDERED: Colchicine 0.6 MG TAB PO SCH (09:00)
[2023-08-08] MEDS ORDERED: Trimethoprim/Sulfamethoxazole DS Tab PO SCH (09:00)
[2023-08-08] MEDS ORDERED: Losartan Potassium 25 MG Tab PO SCH (09:00)
[2023-08-08] MEDS ORDERED: Vitamin B Complex 1 EA Softgel PO SCH (09:00)
[2023-08-08] MEDS ORDERED: Calcitriol 0.25 MCG Cap PO SCH (09:00)
[2023-08-08] MEDS ORDERED: Allopurinol 100 MG Tab PO SCH (09:00)
[2023-08-08] MEDS ORDERED: SULTRIDS PO (10:14)
[2023-08-08] MEDS ORDERED: ONDA4ODT MM (10:14)
[2023-08-08 10:22] LABS: Hematocrit 31.1 % (33.0-51.0); Hemoglobin 9.9 g/dL (11.5-16.0)
--- NOTE | 2023-08-08 11:58 | NUR ---
DISCHARGE SUMMARY POD1 R TKA, AQUACEL CDI, TEDS/POLAR NUSRAT ON. A&OX4, VSS/RA, APPLE PO, VOIDING, AMB SBA FWW/GB, PAIN MANAGED, IV DC'D. DC INS PROVIDED. PT REP UNDERSTANDING THOSE INSTRUCTIONS. LEFT FLOOR VIA WC WITH SENIOR INFORMATION SECURITY ENGINEER, WITH ALL PERSONAL POSSESSIONS INCLUDING DC PACKET, POLAR NUSRAT; SCRIPTS FILLED AND AT HOME, TO GO HOME WITH . TELEPHONE CALL TO HOSPITALIST AND RECEIVED OKAY TO DC PATIENT HOME.
[2023-08-08] MEDS ORDERED: Rivaroxaban 10 MG Tab PO SCH (17:00)
== END 2023-08-08 11:44 | disposition home or self-care (01) ==
LOC: SURS 08:34 → ORSCMMR 08:34 → SURS 14:09 → ORSCMMR 08-08 11:44
PROVIDERS: Family Medicine; Orthopaedic Surgery
PROC: 0SRC0JA Replacement of Right Knee Joint with Synthetic Substitute, Uncemented, Open Approach (ICD-10-PCS; principal; 2023-08-07 10:45)
DX: M17.11 Unilateral primary osteoarthritis, right knee (principal); I10 Essential (primary) hypertension; Z86.718 Personal history of other venous thrombosis and embolism; Z79.01 Long term (current) use of anticoagulants; Z79.899 Other long term (current) drug therapy
CPT/HCPCS: 36415; 73560-RT; 80048; 83735; 85014; 85018; 85025; 93005; 93010; 94760; 97110; 97116; 97162; A9270; C1713; C1776; J0171; J0690; J0735; J1100; J1170; J1885; J2250; J2270; J2405; J2704; J2795; J3010; J3370; J7120

== ENCOUNTER 2024-04-28 08:04 | Day surgery (SDC) | payer OTHER ==
[~2024-04-28] VITALS: Wt 66.0 kg
[~2024-04-28 08:04] MED LIST changes: +HYDMOR4 PO; +Lactated Ringer's 1,000 ML IV ONE; +ONDA4ODT MM; +SULTRIDS PO; +propofoL 50 ML IV ONE
[2024-04-28] MEDS ORDERED: LEVOTHYROXINE75 MC9 (08:52)
[2024-04-28] MEDS ORDERED: GABAPENTIN600 MG (08:53)
[2024-04-28] MEDS ORDERED: TIZA4 (08:54)
[2024-04-28] MEDS ORDERED: LOSA25 PO (08:54)
[2024-04-28] MEDS ORDERED: Lactated Ringer's 1,000 ML IV ONE (09:14)
[2024-04-28 10:50] VITALS: BP 150/74
== END 2024-04-28 10:40 | disposition home or self-care (01) ==
LOC: ORSCSDS 08:04
PROVIDERS: Internal Medicine Gastroenterology
PROC: 0DB68ZX Excision of Stomach, Via Natural or Artificial Opening Endoscopic, Diagnostic (ICD-10-PCS; principal; 2024-04-28 09:15)
PROC: 0DBK8ZX Excision of Ascending Colon, Via Natural or Artificial Opening Endoscopic, Diagnostic (ICD-10-PCS; principal; 2024-04-28 09:15)
DX: R10.13 Epigastric pain (principal); Z12.11 Encounter for screening for malignant neoplasm of colon; Z86.0101 Personal history of adenomatous and serrated colon polyps; R15.9 Full incontinence of feces; D12.2 Benign neoplasm of ascending colon; K57.30 Diverticulosis of large intestine without perforation or abscess without bleeding; Z86.711 Personal history of pulmonary embolism; Z79.01 Long term (current) use of anticoagulants; Z79.899 Other long term (current) drug therapy
CPT/HCPCS: 88305; 88342; J2704; J7120

== ENCOUNTER → 2025-05-05 | Outpatient (CLI) | payer OTHER ==
[~2025-05-05] MED LIST changes: +GABAPENTIN600 MG; +LEVOTHYROXINE75 MC9; +LOSA25 PO; -Lactated Ringer's 1,000 ML IV ONE; +TIZA4; -propofoL 50 ML IV ONE
[2025-05-05 16:06] LABS: Bacterial Vaginosis PCR Negative (NEGATIVE); Candida Group, PCR NOT DETECTED (NOT DETECT); Candida glabrata-krusei, PCR NOT DETECTED (NOT DETECT)
== END ==
LOC: LAB 13:50 → LAB SHORT 13:50
PROVIDERS: Hospitalist
DX: N95.2 Postmenopausal atrophic vaginitis (principal); N94.89 Other specified conditions associated with female genital organs and menstrual cycle
CPT/HCPCS: 81515